=== PATIENT | male | born 1955 | race Caucasian/White ===

== ENCOUNTER → 2021-05-20 | Outpatient (CLI) | payer MEDICARE ==
[~2021-05-20] MED LIST: NORFLEX 100 MG100 MG PO; Voltaren Gel 1 % TOP
== END ==
LOC: CT 13:03
DX: R22.1 Localized swelling, mass and lump, neck (principal); E11.9 Type 2 diabetes mellitus without complications; I10 Essential (primary) hypertension
CPT/HCPCS: 36415; 70491; 82565; 84520; Q9967

== ENCOUNTER 2021-06-02 01:00 | Inpatient (IN) | payer MEDICARE ==
[~2021-06-02] VITALS: Ht 170.2 cm; Wt 82.1 kg
[2021-06-02 01:56] LABS: RED BLOOD COUNT 4.07 M/UL (4.20-5.50); WHITE BLOOD COUNT 19.2 K/UL (4.5-11.0)
[2021-06-02 02:20] LABS: BUN/CREATININE RATIO 17 (0-10)
--- NOTE | 2021-06-02 05:11 | NUR ---
LATE ENTRY [address] REESE THAT PATIENT DOES NOT HAVE CENTRAL LINE OR ART LINE FOR ARTIC SUN TO BE STARTED, DR REESE STATES PATIENT DOES NOT NEED CENTRAL LINE OR ART LINE FOR ARTIC SUN NOTIFIED THAT PER POLICY PATIENT NEEDS ART LINE OR CENTRAL LINE BECAUSE WE WILL NOT BE ABLE TO DO STICKS OR GET GLUCOSE, DR REESE STATES IT IS MORE OF A SUGGESTION AND PATIENT DOES NOT NEED ART LINE OR CENTRAL LINE, STATES SURGERY CAN BE CONSULTED FOR ART LINE OR CENTRAL WHEN DAY SHIFT COMES IN
[2021-06-02] MEDS ORDERED: METFORMIN HCL1000 MG PO (05:42)
[2021-06-02] MEDS ORDERED: GLIPIZIDE10 MG PO (05:42)
[2021-06-02] MEDS ORDERED: ZETIA10 MG PO (05:43)
[2021-06-02] MEDS ORDERED: HALOPERIDOL5 MG PO (05:43)
[2021-06-02] MEDS ORDERED: KLONOPIN TAB 00.5 MG PO (05:43)
[2021-06-02] MEDS ORDERED: DESYREL 50 MG T50 MG PO (05:44)
[2021-06-02] MEDS ORDERED: LISINOPRIL20 MG PO (05:45)
[2021-06-02] MEDS ORDERED: DULOXETINE HCL30 MG PO (05:46)
[2021-06-02 06:26] LABS: HEMOGLOBIN 13.6 gm/dl (14.0-17.5); RED BLOOD COUNT 4.3 M/UL (4.20-5.50); WHITE BLOOD COUNT 22.2 K/UL (4.5-11.0)
[2021-06-02 08:30] LABS: BUN/CREATININE RATIO 22 (0-10)
[2021-06-02 10:45] LABS: RED BLOOD COUNT 4.38 M/UL (4.20-5.50)
[2021-06-02 10:46] LABS: WHITE BLOOD COUNT 15.2 K/UL (4.5-11.0)
[2021-06-02 11:47] LABS: BUN/CREATININE RATIO 27 (0-10)
[2021-06-02 16:46] LABS: HEMOGLOBIN 13.5 gm/dl (14.0-17.5); RED BLOOD COUNT 4.22 M/UL (4.20-5.50); WHITE BLOOD COUNT 12.6 K/UL (4.5-11.0)
[2021-06-02 17:17] LABS: BUN/CREATININE RATIO 30 (0-10)
[2021-06-02 23:05] LABS: HEMOGLOBIN 14.3 gm/dl (14.0-17.5); RED BLOOD COUNT 4.44 M/UL (4.20-5.50); WHITE BLOOD COUNT 13.5 K/UL (4.5-11.0)
[2021-06-02 23:49] LABS: BUN/CREATININE RATIO 29 (0-10)
[2021-06-03 05:22] LABS: HEMOGLOBIN 13.7 gm/dl (14.0-17.5); RED BLOOD COUNT 4.35 M/UL (4.20-5.50); WHITE BLOOD COUNT 13.7 K/UL (4.5-11.0)
[2021-06-03 07:06] LABS: BUN/CREATININE RATIO 26 (0-10)
[2021-06-03 09:05] LABS: BUN/CREATININE RATIO 31 (0-10)
[2021-06-03 10:09] LABS: HEMOGLOBIN 13.8 gm/dl (14.0-17.5); RED BLOOD COUNT 4.33 M/UL (4.20-5.50); WHITE BLOOD COUNT 12.5 K/UL (4.5-11.0)
[2021-06-03 12:49] LABS: BUN/CREATININE RATIO 26 (0-10)
[2021-06-03 16:48] LABS: HEMOGLOBIN 13.4 gm/dl (14.0-17.5); RED BLOOD COUNT 4.26 M/UL (4.20-5.50); WHITE BLOOD COUNT 11.9 K/UL (4.5-11.0)
[2021-06-03 18:30] LABS: BUN/CREATININE RATIO 26 (0-10)
[2021-06-03 21:49] LABS: BUN/CREATININE RATIO 25 (0-10)
[2021-06-04 02:52] LABS: BUN/CREATININE RATIO 22 (0-10)
[2021-06-04 05:26] LABS: BUN/CREATININE RATIO 22 (0-10)
--- NOTE | 2021-06-04 15:13 | NUR ---
TEMPERATURE PADS DISCONNECTED FROM MACHINE PER MD FOR CT SCAN @1345 PATIENT PLACED BACK ON ARTIC SUN MACHINE WHEN RETURNING FROM CT. PT TEMP BACK AT 36.4 AND MAINTAINING
[2021-06-05 04:50] LABS: HEMOGLOBIN 11.4 gm/dl (14.0-17.5); RED BLOOD COUNT 3.63 M/UL (4.20-5.50); WHITE BLOOD COUNT 7.9 K/UL (4.5-11.0)
== END 2021-06-05 15:44 | disposition expired | DRG 871 ==
LOC: ER1 01:00 → CDU 03:33 → CCU 03:33
PROVIDERS: Family Medicine; Internal Medicine; ADMIT Internal Medicine
PROC: 5A12012 Performance of Cardiac Output, Single, Manual (ICD-10-PCS; principal; 2021-06-02)
PROC: 0BH17EZ Insertion of Endotracheal Airway into Trachea, Via Natural or Artificial Opening (ICD-10-PCS; 2021-06-02)
PROC: 3E043XZ Introduction of Vasopressor into Central Vein, Percutaneous Approach (ICD-10-PCS; 2021-06-02)
PROC: 5A1945Z Respiratory Ventilation, 24-96 Consecutive Hours (ICD-10-PCS; 2021-06-02)
PROC: B24BZZZ Ultrasonography of Heart with Aorta (ICD-10-PCS; 2021-06-02)
PROC: 02HV33Z Insertion of Infusion Device into Superior Vena Cava, Percutaneous Approach (ICD-10-PCS; 2021-06-02)
PROC: B548ZZA Ultrasonography of Superior Vena Cava, Guidance (ICD-10-PCS; 2021-06-02)
PROC: 03HY32Z Insertion of Monitoring Device into Upper Artery, Percutaneous Approach (ICD-10-PCS; 2021-06-02)
DX: A41.9 Sepsis, unspecified organism (principal); R65.21 Severe sepsis with septic shock; J96.01 Acute respiratory failure with hypoxia; T68.XXXA Hypothermia, initial encounter; Z20.822 Contact with and (suspected) exposure to COVID-19; Z66 Do not resuscitate; I21.4 Non-ST elevation (NSTEMI) myocardial infarction; J81.0 Acute pulmonary edema; J18.9 Pneumonia, unspecified organism; R57.0 Cardiogenic shock; I46.8 Cardiac arrest due to other underlying condition; J96.02 Acute respiratory failure with hypercapnia; E87.2 Acidosis; J44.0 Chronic obstructive pulmonary disease with (acute) lower respiratory infection; E87.1 Hypo-osmolality and hyponatremia; I50.22 Chronic systolic (congestive) heart failure; N17.9 Acute kidney failure, unspecified; G93.1 Anoxic brain damage, not elsewhere classified; Z51.5 Encounter for palliative care; R74.01 Elevation of levels of liver transaminase levels; E78.5 Hyperlipidemia, unspecified; I11.0 Hypertensive heart disease with heart failure; I25.10 Atherosclerotic heart disease of native coronary artery without angina pectoris; E11.9 Type 2 diabetes mellitus without complications; F17.210 Nicotine dependence, cigarettes, uncomplicated; I44.7 Left bundle-branch block, unspecified; I48.91 Unspecified atrial fibrillation; G40.909 Epilepsy, unspecified, not intractable, without status epilepticus; Z95.5 Presence of coronary angioplasty implant and graft; Z98.42 Cataract extraction status, left eye; Z98.41 Cataract extraction status, right eye; Z80.9 Family history of malignant neoplasm, unspecified; Z79.01 Long term (current) use of anticoagulants; Z79.82 Long term (current) use of aspirin; Z79.4 Long term (current) use of insulin; Z99.81 Dependence on supplemental oxygen
CPT/HCPCS: ECHO; 31500; 36415; 36556; 36600; 51702; 70450; 71045; 80048; 80053; 80307; 81001; 82550; 82553; 82803; 82962; 83605; 83735; 83874; 83880; 84100; 84484; 85025; 85384; 85610; 85730; 87040; 87081; 92950; 93005; 93306; 94002; 94003; 94760; 95819; 96374; 99285; C9113; J0696; J1265; J1644; J1940; J1953; J2060; J2250; J2270; J2543; J2704; J3010; J7030; J7050; U0002